=== PATIENT | female | born 1980 | race Caucasian/White ===

== ENCOUNTER 2019-02-06 00:19 | Emergency (ER) | payer MEDICAID, OTHER ==
[~2019-02-06] VITALS: Ht 152.4 cm; Wt 73.0 kg
[~2019-02-06 00:19] MED LIST: PREN-55 PO
[2019-02-06 00:35] VITALS: BP 129/71
== END 2019-02-06 06:09 | disposition left against medical advice (07) ==
LOC: ER 00:41
DX: R10.9 Unspecified abdominal pain (principal); Z53.21 Procedure and treatment not carried out due to patient leaving prior to being seen by health care provider

== ENCOUNTER 2020-10-22 16:57 | Emergency (ER) | payer OTHER ==
[~2020-10-22] VITALS: Ht 152.4 cm; Wt 76.0 kg
[2020-10-22] MEDS ORDERED: IBUPROFEN 600MG TABLET PO ONE (20:00)
[2020-10-22] MEDS ORDERED: ALBU90AE INH (20:41)
[2020-10-22 21:12] VITALS: BP 117/80
== END 2020-10-22 21:13 | disposition home or self-care (01) ==
LOC: ER 16:57
DX: Z20.822 Contact with and (suspected) exposure to COVID-19 (principal); R05 Cough
CPT/HCPCS: 71045; 99284; C9803; U0003; U0005; 81025

== ENCOUNTER 2021-03-12 07:55 | Emergency (ER) | payer MEDICAID, OTHER ==
[~2021-03-12] VITALS: Ht 152.4 cm; Wt 73.0 kg
[~2021-03-12 07:55] MED LIST changes: +ALBU90AE INH
[2021-03-12] MEDS ORDERED: ACETAMINOPHEN 325MG TABLET PO STA (08:09)
[2021-03-12] MEDS ORDERED: SODIUM CHLORIDE 0.9% 1,000 ML IV ONE (08:30)
[2021-03-12 08:52] LABS: BASOPHILS % 0.4 % (0.0-2.0); EOSINOPHILS % 0.3 % (0.0-5.0); HEMATOCRIT. 41.1 % (36.0-48.0); HEMOGLOBIN. 13.5 g/dL (12.0-16.0); LYMPHOCYTES % 19.1 % (20.0-50.0); MEAN CORPUSCULAR HEMOGLOBIN 26.8 pg (28.0-32.0); MEAN CORPUSCULAR VOLUME 81.5 fL (81.0-99.0); MEAN PLATELET VOLUME 9.3 fl (7.4-10.4); MONOCYTES % 5.9 % (2.0-8.0); NEUTROPHILS % 74.3 % (40.0-76.0); PLATELET 284 x1000/uL (130-400); RED BLOOD CELL COUNT 5.04 mill/uL (4.2-5.4); RED CELL DISTRIBUTION WIDTH 14.9 % (11.6-14.6)
[2021-03-12 08:55] LABS: CLARITY URINE CLEAR (CLEAR); COLOR URINE RED (YELLOW); KETONES URINE NEGATIVE (NEGATIVE); LEUKOCYTE ESTERASE URINE 1+ (NEGATIVE); NITRITE URINE NEGATIVE (NEGATIVE); OCCULT BLOOD URINE 3+ (NEGATIVE); PH URINE 6.5 (4.5-8.0); PROTEIN URINE 2+ (NEGATIVE); SPECIFIC GRAVITY URINE 1.007 (1.005-1.030); UROBILINOGEN URINE 0.2 E.U./dL (0.2-1.0)
[2021-03-12 09:01] LABS: CHLORIDE 109 mEq/L (98-107)
[2021-03-12] MEDS ORDERED: IBUP-2028 MT (12:23)
[2021-03-12 13:24] VITALS: BP 113/65
== END 2021-03-12 13:30 | disposition home or self-care (01) ==
LOC: ER 07:55
DX: N93.8 Other specified abnormal uterine and vaginal bleeding (principal)
CPT/HCPCS: 36415; 76830; 76856; 80053; 81003; 85025; 96360; 96361; 99284; J7030

== ENCOUNTER 2023-02-13 02:31 | Emergency (ER) | payer MEDICAID, OTHER ==
[~2023-02-13] VITALS: Ht 152.4 cm; Wt 59.0 kg
[~2023-02-13 02:31] MED LIST changes: +IBUP-2028 MT
[2023-02-13 02:50] VITALS: BP 128/86; PULSE 71; RESP 18; TEMP 97.9; O2SAT 99
== END 2023-02-13 03:24 | disposition left against medical advice (07) ==
LOC: ER 02:31
DX: J02.9 Acute pharyngitis, unspecified (principal); Z53.21 Procedure and treatment not carried out due to patient leaving prior to being seen by health care provider
CPT/HCPCS: 99281